=== PATIENT | male | born 1980 | race Two or more races ===

== ENCOUNTER 2021-10-28 08:01 | Outpatient (REF) | payer MEDICAID, SELFPAY ==
[2021-10-28 08:24] LABS: MANUAL DIFF FLAG NO
[2021-10-28 09:13] LABS: Basophils Absolute Auto 0.1 X10*3/uL (0.0-0.2); Basophils Percent Auto 1.7 % (0-2); Eosinophils Absolute Auto 0.5 X10*3/uL (0.0-0.4); Eosinophils Percent Auto 6.1 % (0-4); Hematocrit 46.8 % (42.0-52.0); Hemoglobin 15.7 g/dl (14.0-18.0); Imm Gran Abs Auto 0.02 X10*3/uL (0.00-0.03); Imm Gran Pct Auto 0.3 % (0.0-0.4); Lymphocytes Absolute Auto 1.8 X10*3/uL (1.2-4.9); Mean Corpuscular HGB Conc 33.5 g/dl (31.0-36.0); Mean Corpuscular Hemoglobin 29.1 pg (27.0-33.0); Mean Corpuscular Volume 86.8 fL (80.0-98.0); Mean Platelet Volume 9.4 fL (9.4-12.4); Monocytes Absolute Auto 0.9 X10*3/uL (0.1-1.2); Neutrophils Absolute Auto 4.3 x10*3/uL (2.0-8.3); Neutrophils Percent Auto 55.9 % (45-73); Platelet Count 341 X10*3/uL (160-400); Red Blood Count 5.39 X10*6/uL (4.60-5.80); Red Cell Distribution Width 13.1 % (11.0-16.0); White Blood Count 7.7 X10*3/uL (4.8-10.8)
[2021-10-28 09:40] LABS: Alanine Aminotransferase 25 U/L (0-40); Albumin Level 4.4 g/dL (3.5-5.0); Alkaline Phosphatase 48 U/L (39-117); Anion Gap 11 (12-20); Aspartate Amino Transferase 20 U/L (5-37); Bilirubin Total 0.5 mg/dL (0.0-1.0); Blood Urea Nitrogen 18 mg/dL (9-16); Calcium 9.9 mg/dL (8.4-10.2); Carbon Dioxide 28 mmol/L (22-29); Chloride 104 mmol/L (96-108); Cholesterol 203 mg/dL; Estimated Glomerular Filt Rate > 60; Glucose Fasting 98 mg/dL (60-99); HDL Cholesterol 47 mg/dL; LDL Cholesterol Calculated 137 mg/dl; Potassium 4.4 mmol/L (3.3-5.1); Sodium 139 mmol/L (135-145); Total Protein 7.9 g/dL (6.5-8.0); Triglycerides 95 mg/dL
[2021-10-28 10:06] LABS: Thyroid Stimulating Hormone 0.79 uIU/mL (0.32-4.0)
== END 2021-10-28 08:02 | disposition home or self-care (01) ==
LOC: HO.LAB 08:01
PROVIDERS: PCP Internal Medicine; Visit Provider Internal Medicine
DX: E78.5 Hyperlipidemia, unspecified (principal); E66.9 Obesity, unspecified; D64.9 Anemia, unspecified
CPT/HCPCS: 36415; 80053; 80061; 84443; 85025

== ENCOUNTER 2022-09-01 08:53 | Outpatient (REF) | payer OTHER, SELFPAY ==
[2022-09-01 09:03] LABS: MANUAL DIFF FLAG NO
[2022-09-01 09:20] LABS: Basophils Absolute Auto 0.2 X10*3/uL (0.0-0.2); Basophils Percent Auto 2.1 % (0-2); Eosinophils Absolute Auto 0.4 X10*3/uL (0.0-0.4); Eosinophils Percent Auto 4.7 % (0-4); Hematocrit 49.1 % (42.0-52.0); Hemoglobin 16.5 g/dl (14.0-18.0); Imm Gran Abs Auto 0.03 X10*3/uL (0.00-0.03); Imm Gran Pct Auto 0.4 % (0.0-0.4); Lymphocytes Absolute Auto 2.1 X10*3/uL (1.2-4.9); Lymphocytes Percent Auto 26.3 % (20-40); Mean Corpuscular HGB Conc 33.6 g/dl (31.0-36.0); Mean Corpuscular Hemoglobin 29.3 pg (27.0-33.0); Mean Corpuscular Volume 87.1 fL (80.0-98.0); Mean Platelet Volume 9.3 fL (9.4-12.4); Monocytes Absolute Auto 0.9 X10*3/uL (0.1-1.2); Monocytes Percent Auto 11.6 % (2-11); Neutrophils Absolute Auto 4.3 x10*3/uL (2.0-8.3); Neutrophils Percent Auto 54.9 % (45-73); Platelet Count 364 X10*3/uL (160-400); Red Blood Count 5.64 X10*6/uL (4.60-5.80); Red Cell Distribution Width 12.8 % (11.0-16.0); White Blood Count 7.8 X10*3/uL (4.8-10.8)
[2022-09-01 09:56] LABS: Alanine Aminotransferase 28 U/L (0-40); Albumin Level 4.4 g/dL (3.5-5.0); Alkaline Phosphatase 55 U/L (39-117); Anion Gap 12 (12-20); Aspartate Amino Transferase 21 U/L (5-37); Bilirubin Total 0.7 mg/dL (0.0-1.0); Blood Urea Nitrogen 16 mg/dL (9-16); Calcium 9.6 mg/dL (8.4-10.2); Carbon Dioxide 26 mmol/L (22-29); Chloride 104 mmol/L (96-108); Cholesterol 203 mg/dL; Estimated Glomerular Filt Rate > 60; Glucose Fasting 98 mg/dL (60-99); HDL Cholesterol 44 mg/dL; LDL Cholesterol Calculated 141 mg/dl; Potassium 4.3 mmol/L (3.3-5.1); Sodium 138 mmol/L (135-145); Total Protein 7.9 g/dL (6.5-8.0); Triglycerides 92 mg/dL
[2022-09-01 10:30] LABS: TSH reflex Free T4 0.48 uIU/mL (0.32-4.0); Vitamin B12 671 pg/mL (200-900); Vitamin D 25-OH Total 8.6 ng/mL (>30)
== END 2022-09-01 08:54 | disposition home or self-care (01) ==
LOC: HO.LAB 08:53
PROVIDERS: PCP Internal Medicine; Visit Provider Nurse Practitioner Family
DX: K21.9 Gastro-esophageal reflux disease without esophagitis (principal); Z13.220 Encounter for screening for lipoid disorders
CPT/HCPCS: 36415; 80053; 80061; 82306; 82607; 82746; 84443; 85025

== ENCOUNTER 2024-11-24 15:53 | Outpatient (AMB) | payer OTHER, SELFPAY ==
[2024-11-24 16:01] VITALS: BP 148/98; BMI 35.0
--- NOTE | 2024-11-24 16:01 | MHC.PC.OV ---
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 Accompanied by: Self / Same As Patient Allergies No Known Allergies Allergy (Verified 11/24/24 16:13) Medication List - Last Reconciled 11/24/24 by Francesca Olivares MD cholecalciferol (vitamin D3) 50 mcg PO DAILY omeprazole 20 mg PO DAILY 90 days Tobacco use date assessed: 11/24/24 Dental Screening Dental Screen Date: 11/24/24 Did you have a dental visit in the last 12 months?: No Did you have a dental problem in the last 6 months where you did not have access to dental care?: No Was dental information given to patient?: Patient has dentist HPI HPI Comments History of Present Illness Details The patient is a 44-year-old male presenting for a routine physical exam and to discuss current health issues, including tetanus vaccination status, spinal pain, GERD, and mental health concerns. He mentions a history of back pain for several days, which worsens with movement. For GERD, he is on omeprazole, managing previous stomach discomfort effectively. He expresses occasional depressive episodes and anxiety, without suicidal thoughts or a history of psychiatric treatment. His vaccinations are missing updates, specifically the tetanus, as his last dose was administered ten years ago in 2013. During the visit, there was a plan to discuss initiating colonoscopy screening given his age. Additionally, his family history is non-contributory. He denies tobacco use and reports that he drinks alcohol sporadically. There are no previous surgeries, though he experiences periodic allergy symptoms for which he has taken Zyrtec before but couldn't recall for what purpose. - Tetanus vaccine is due; last administration was in 2013. - Screening colonoscopy recommended due to age-appropriate guidelines. - No recent vaccinations or infectious disease screenings performed (COVID-19 or influenza not tested recently). - Discussed general health maintenance, including follow-up for blood pressure monitoring. [facility] Medical History Depression Allergic rhinitis Obese GERD (gastroesophageal reflux disease) Surgical History No pertinent past surgical history Family History Father No problems noted. Mother No problems noted. Social History Housing: Apartment Alcohol intake: current Alcohol intake frequency: a few times a month Alcohol type: beer Patient Tobacco Use Status: Never used Tobacco e-Cigarette/Vaping Use: Never Used Second Hand Smoke Exposure: No service: No Current occupational status: unemployed Cognitive needs: No Hearing needs: No Vision needs: No Questionnaire PHQ-9 Over the last 2 weeks, how often have you been bothered by any of the following problems? 1. Little interest or pleasure in doing things: several days 2. Feeling down, depressed, or hopeless: nearly every day 3. Trouble falling or staying asleep, or sleeping too much: nearly every day 4. Feeling tired or having little energy: nearly every day 5. Poor appetite or overeating: not at all 6. Feeling bad about yourself - or that you are a failure or have let yourself or your family down: several days 7. Trouble concentrating on things, such as reading the newspaper or watching television: not at all 8. Moving or speaking so slowly that other people could have noticed. Or the opposite - being so fidgety or restless that you have been moving around a lot more than usual: nearly every day 9. Thoughts that you would be better off or of hurting yourself in some way: not at all Total score: 14 Depression Screening Interpretation: Positive (no suicidal thoughts) Depression Screening Follow-up: Existing condition and Follow-up Visit Requested Depression Screening Done: Yes 63662 - PHQ-9 Billing: Yes Source: Developed by Drs. Jaskaran Chappell, Kaitlynn Escobar, Zac Martines and colleagues, with an educational tavon from [employer]. Thrive Questionnaire Date Thrive assessed: 11/24/24 I am a: Patient What is your living situation today?: I have a steady place to live Within the past 12 months, did the food you bought not last and you didn't have the money to get more?: Often true Within the past 12 months, did you worry whether your food would run out before you got money to buy more?: Often true Do you have trouble paying for medicines?: Yes Do you have trouble getting transportation to medical appointments?: No Do you have trouble paying your heating and electricity bill?: No Do you have trouble taking care of your child, family member or friend?: No Do you have trouble with day-to-day activities such as bathing, preparing meals, shopping, managing finances, etc.?: No Are you currently unemployed and looking for a job?: Yes Are you interested in more education?: Yes Please select the resources that you would like help with: None Currently or been in a relationship where the following occur: No concerns reported THRIVE Score: 2 AUDIT C Alcohol Use Questionnaire (AUDIT-C) 1. How often do you have a drink containing alcohol?: Monthly or less 2. How many drinks containing alcohol do you have on a typical day when you are drinking?: 1 or 2 3. How often do you have six or more drinks on one occasion?: Never Total Score: 1 Score Reviewed/Action Taken: No KELSEA-7 AMB Questionnaire KELSEA-7 Date KELSEA - 7 assessed: 11/24/24 Feeling nervous, anxious, or on edge: 2 = More than half the days Not being able to stop or control worryin = Not at all Worrying too much about different things: 3 = Nearly every day Trouble relaxin = Several days Being so restless that it is hard to sit still: 0 = Not at all Becoming easily annoyed or irritable: 1 = Several days Feeling afraid as if something awful might happen: 3 = Nearly every day Total KELSEA-7 score (0-4 normal; 5-9 mild; 10-14 moderate; 15-21 severe): 10 Source: Developed by Drs. Jaskaran Chappell, Kaitlynn Escobar, Zac Martines and colleagues, with an educational tavon from [employer]. KELSEA-7 Assessment Billing KELSEA-7 Assessment Tool: KELSEA-7 Assessment 05375 Review of Systems Const All systems reviewed & are unremarkable except as noted in HPI and below Card Denies chest pain at rest, Denies chest pain with activity, Denies edema, Denies irregular heart rhythm, Denies claudication, Denies dyspnea, Denies dyspnea on exertion, Denies orthopnea, Denies paroxysmal nocturnal dyspnea and Denies slow heart rate Resp Denies cough, Denies dyspnea and Denies dyspnea on exertion GI Denies abdominal pain, Denies change in bowel habits, Denies excessive flatus, Denies nausea and Denies vomiting Denies urinary hesitancy, Denies urinary incontinence and Denies urinary urgency Musc Reports back pain, Denies atrophy, Denies deformity, Denies limited range of motion and Reports radiating pain into limb Physical exam (Primary Care) Vital Signs: Last Vital Signs BP 148/98 H 11/24/24 16:01 BMI result Body Mass Index 35.0 Tobacco/Smoking Status: Tobacco use Status Tobacco use date assessed 11/24/24 11/24/24 16:09 Patient Tobacco Use Status Never used Tobacco 11/24/24 16:09 e-Cigarette/Vaping Use Never Used 11/24/24 16:09 PHQ-9: PHQ-9 Score PHQ-9: Total score 14 11/24/24 16:34 Depression Screening Interpretation: Positive (no suicidal thoughts) Depression Screening Follow-up: Existing condition and Follow-up Visit Requested Thrive Assessment: Date of Thrive Assessment Date Thrive assessed 11/24/24 11/24/24 16:09 Currently or been in a relationship where the following occur: No concerns reported HENMT Head: Yes normal to inspection, Yes normocephalic and Yes atraumatic Ears: external ears normal Eyes General: appearance normal, both eyes and all related structures Eyelids: Yes eyelids normal Conjunctivae: conjunctivae normal Neck Neck: Yes normal visual inspection and Yes supple Resp Effort & Inspection: normal respiratory effort Auscultation: clear to auscultation bilaterally Cardio Jugular venous distension: no JVD Rate: regular rate Rhythm: regular rhythm Heart sounds: S1 normal heart sound present and S2 normal heart sound present GI Inspection: Yes normal to inspection Palpation (GI): Soft to palpation and nontender Auscultation: normal bowel sounds Skin General skin exam: no rashes or lesions noted Neuro General: no focal motor deficits Extrem General: Yes full ROM Psych Appearance: grossly normal Immunizations Boostrix Tdap 2.5 Lf unit-8 mcg-5 Lf/0.5 mL intramuscular syringe Performing Provider: Francesca Olivares MD [place] [facility] [place] [facility] Administered by: SHAINA Lu on 11/24/24 16:35 Dose Route Admin Location Dispensed Lot Number Expiration Date [employer] 0.5 mL IM Left Deltoid 0.5 mL [id number] 03/04/27 81948-833-90 [employer] VIS Given Date VIS Provided VIS Publication Date 11/24/24 Single Vaccine 24 Eligibility Eligibility Date Funding Source Not [facility] Eligible 11/24/24 Private Coding Level of Care Code Est Pt Level 3 (53003) Est Pt Prev Care 40-64y(84388) Diagnoses Adult general medical exam Z00.00 Right sided sciatica M54.31 Allergic rhinitis J30.9 GERD (gastroesophageal reflux disease) K21.9 Mild recurrent major depression F33.0 Additional Codes KELSEA-7 Assessment Billing - KELSEA-7 Assessment Tool: KELSEA-7 Assessment 02204 ([id number]) PHQ-9 - 02964 - PHQ-9 Billing: Yes ([id number]) Time Spent (min) 32 Assessment & Plan Assessment & Plan (1) Adult general medical exam: Code(s): Z00.00 - Encounter for general adult medical examination without abnormal findings Category: Medical (2) Right sided sciatica: Code(s): M54.31 - Sciatica, right side Category: Medical (3) Allergic rhinitis: Code(s): J30.9 - Allergic rhinitis, unspecified Category: Medical (4) GERD (gastroesophageal reflux disease): Code(s): K21.9 - Gastro-esophageal reflux disease without esophagitis Category: Medical (5) Mild recurrent major depression: Code(s): F33.0 - Major depressive disorder, recurrent, mild Category: Medical Plan The plan includes addressing multiple concerns highlighted during the visit. Initiate antibiotic therapy with Premison, along with imaging of the spine to assess underlying spinal issues. Continue omeprazole for GERD management. Address mental health issues by monitoring symptoms closely and assessing the effectiveness of past prescriptions. Administer tetanus vaccine today due to it being overdue. For preventive care, schedule a colonoscopy screening and intermittent blood pressure monitoring to manage detected elevation. Follow-up to assess response to current management and new screenings. Patient was informed and verbally consented to the use of an ambient scribe for clinic note documentation during this visit. I discussed with the patient the need for an updated tetanus vaccination, which was agreed upon today. Addressed the importance of imaging for spine pain to ensure an accurate diagnosis. We discussed the reliance on omeprazole for GERD and verified current prescriptions were adequate. Emphasized the necessity of screening colonoscopy due to reaching the recommended age. We agreed on the plan to begin monitoring blood pressure at intervals and direct the follow-up of depression and anxiety symptoms without exploring in-depth psychiatric referrals presently. The patient consented to all recommended procedures and medications as outlined. Orders: Orders Vitamin D 25-OH Total Today E55.9 - Vitamin D deficiency, unspecified XR lumbar spine 2-3V Today M54.31 - Sciatica, right side Lipid Panel Today E78.5 - Hyperlipidemia, unspecified, Z00.00 - Encounter for general adult medical examination without abnormal findings Comprehensive [place]. Panel Fast Today Z00.00 - Encounter for general adult medical examination without abnormal findings TDaP Immunization Today Z23 - Encounter for immunization Referrals Open Access Screening Colonoscopy Referral Z12.12 - Encounter for screening for malignant neoplasm of rectum Medications: New famotidine 40 mg PO BID 180 tabs 1RF 90 days J30.2 - Other seasonal allergic rhinitis levocetirizine 5 mg PO DAILY PRN 90 tabs 1RF allergy symptoms 90 days J30.2 - Other seasonal allergic rhinitis Patient Instructions: - Stay for tetanus vaccination today. - Follow through with prescribed antibiotics for five days. - Monitor blood pressure at home periodically. - Schedule the colonoscopy for colon cancer screening. - Use omeprazole as directed for GERD symptoms. - Follow up after completing spine imaging. - Reach out if any significant change in feelings of anxiety or depression. - Report any worsening or persistent back pain.
== END 2024-11-24 16:38 | disposition home or self-care (01) ==
LOC: HO.HMCH 15:54
PROVIDERS: PCP Internal Medicine; Visit Provider Internal Medicine
DX: Z00.00 Encounter for general adult medical examination without abnormal findings (principal); M54.31 Sciatica, right side; J30.9 Allergic rhinitis, unspecified; K21.9 Gastro-esophageal reflux disease without esophagitis; F33.0 Major depressive disorder, recurrent, mild; Z23 Encounter for immunization

== ENCOUNTER → 2024-11-24 15:53 | Outpatient (BNVA) | payer OTHER, SELFPAY | PROVIDERS: PCP Internal Medicine; Visit Provider Internal Medicine | DX: Z00.00 Encounter for general adult medical examination without abnormal findings (principal); Z23 Encounter for immunization; M54.31 Sciatica, right side; J30.9 Allergic rhinitis, unspecified; K21.9 Gastro-esophageal reflux disease without esophagitis; F33.0 Major depressive disorder, recurrent, mild; Z79.899 Other long term (current) drug therapy | CPT/HCPCS: 90471; 90715; 96127; 99212; 99396 ==

== ENCOUNTER 2024-11-26 09:02 | Outpatient (REF) | payer OTHER, SELFPAY ==
--- NOTE | ~2024-11-26 | XR_ITS ---
EXAMINATION: XR LUMBOSACRAL SPINE CLINICAL INFORMATION: M54.31 - Sciatica, right side COMPARISON: October 01, 2009 is not available on PACS. TECHNIQUE: Three views of the lumbosacral spine. FINDINGS: Endplate sclerosis marginal osteophyte formation and decreased intervertebral disc height throughout the lower thoracic and upper lumbar spine. No acute cortical disruption. No gross malalignment. Calcifications in the anterior intervertebral disc T10-11, T11-12 and L1-2. Mild S-shaped curvature of the thoracolumbar spine. XR/XR lumbar spine 2-3V IMPRESSION: Multilevel thoracolumbar spondylosis without acute fracture or gross listhesis. Electronically signed by: Julius Whalen MD 11/26/2024 09:55 AM EDT
[2024-11-26 12:21] LABS: Alanine Aminotransferase 36 U/L (0-40); Albumin Level 4.5 g/dL (3.5-5.0); Alkaline Phosphatase 53 U/L (39-117); Anion Gap 12 (12-20); Aspartate Amino Transferase 27 U/L (5-37); Bilirubin Total 0.6 mg/dL (0.0-1.0); Blood Urea Nitrogen 15 mg/dL (9-16); Calcium 9.4 mg/dL (8.4-10.2); Carbon Dioxide 25 mmol/L (22-29); Chloride 106 mmol/L (96-108); Cholesterol 201 mg/dL (<200); Estimated Glomerular Filt Rate > 60; Glucose Fasting 94 mg/dL (60-99); HDL Cholesterol 46 mg/dL (>40); LDL Cholesterol Calculated 131 mg/dL (<100); Sodium 139 mmol/L (135-145); Total Protein 8.4 g/dL (6.5-8.0); Triglycerides 120 mg/dL (<150); Vitamin D 25-OH Total 19.1 ng/mL (>30)
== END 2024-11-26 09:03 | disposition home or self-care (01) ==
LOC: HO.LAB 09:02
PROVIDERS: PCP Internal Medicine; Visit Provider Internal Medicine
DX: Z00.00 Encounter for general adult medical examination without abnormal findings (principal); E78.5 Hyperlipidemia, unspecified; E55.9 Vitamin D deficiency, unspecified; M54.31 Sciatica, right side
CPT/HCPCS: 36415; 72100; 80053; 80061; 82306

== ENCOUNTER → 2024-11-26 09:21 | Outpatient (BNV) | payer OTHER, SELFPAY | PROVIDERS: PCP Internal Medicine; Visit Provider Radiology Diagnostic Radiology | DX: M47.895 Other spondylosis, thoracolumbar region (principal) | CPT/HCPCS: 72100 ==

== ENCOUNTER → 2024-12-11 08:21 | Outpatient (BNVA) | payer OTHER, SELFPAY | PROVIDERS: PCP Internal Medicine ==

== ENCOUNTER 2025-04-02 08:02 | Outpatient (AMB) | payer OTHER, SELFPAY ==
[2025-04-02 08:10] VITALS: BP 128/82; PULSE 81; TEMP 36.1; O2SAT 97; BMI 35.0
--- NOTE | 2025-04-02 08:10 | A.OFFPC_ITS ---
Vital Signs 04/02/25 08:10 Height 5 ft 10 in Weight 244 lb BMI 35.0 BP 128/82 Blood Pressure Location Lt brachial Position Sitting Pulse 81 Pulse Source Pulse Oximeter Temp 97.0 F Temp Source Temporal Artery Scan Pulse Oximetry (%) 97 Oxygen Delivery Method Room Air Intake Visit Reasons: bp, depression, anxiety Poultry Offal Icer Required: No Accompanied by: Self / Same As Patient Allergies No Known Allergies Allergy (Verified 04/02/25 08:27) Medication List - Last Reconciled 04/02/25 by Francesca Olivares MD cholecalciferol (vitamin D3) 50 mcg PO DAILY famotidine 40 mg PO BID 90 days levocetirizine 5 mg PO DAILY PRN 90 days omeprazole 20 mg PO DAILY 90 days Tobacco use date assessed: 04/02/25 Dental Screening Dental Screen Date: 11/24/24 Did you have a dental visit in the last 12 months?: Yes Did you have a dental problem in the last 6 months where you did not have access to dental care?: No Was dental information given to patient?: Patient has dentist HPI HPI Comments History of Present Illness Details The patient is a 45-year-old male presenting with concerns related to allergies and arthritis management. He reports having arthritis in multiple areas, particularly in the back, which causes significant discomfort exacerbated by certain activities. The patient also experiences allergic reactions to various substances, including perfumes and chocolate, which have been persistent and troublesome. He has been prescribed famotidine and levocetirizine for allergy management, with a plan to add montelukast and a nasal spray for better control. Additionally, the patient has a history of hypertension and hypercholesterolemia, though current management does not require medication for cholesterol. His blood pressure is well-controlled, and cholesterol levels are monitored annually. He also has a history of vitamin D deficiency and gastroesophageal reflux disease, for which he takes omeprazole. [facility] Medical History Depression Allergic rhinitis Obese GERD (gastroesophageal reflux disease) Surgical History No pertinent past surgical history Family History Father No problems noted. Mother No problems noted. Social History Housing: Apartment Alcohol intake: current Alcohol intake frequency: a few times a month Alcohol type: beer Patient Tobacco Use Status: Never used Tobacco e-Cigarette/Vaping Use: Never Used Second Hand Smoke Exposure: No service: No Current occupational status: unemployed Cognitive needs: No Hearing needs: No Vision needs: No Questionnaire PHQ-9 Over the last 2 weeks, how often have you been bothered by any of the following problems? 1. Little interest or pleasure in doing things: several days 2. Feeling down, depressed, or hopeless: nearly every day 3. Trouble falling or staying asleep, or sleeping too much: nearly every day 4. Feeling tired or having little energy: nearly every day 5. Poor appetite or overeating: not at all 6. Feeling bad about yourself - or that you are a failure or have let yourself or your family down: several days 7. Trouble concentrating on things, such as reading the newspaper or watching television: not at all 8. Moving or speaking so slowly that other people could have noticed. Or the opposite - being so fidgety or restless that you have been moving around a lot more than usual: nearly every day 9. Thoughts that you would be better off or of hurting yourself in some way: not at all Total score: 14 Depression Screening Interpretation: Positive (no suicidal thoughts) Depression Screening Follow-up: Existing condition and Follow-up Visit Requested Depression Screening Done: Yes 60693 - PHQ-9 Billing: Yes Source: Developed by Drs. Jaskaran Chappell, Kaitlynn Escobar, Zac Martines and colleagues, with an educational tavon from [employer]. Thrive Questionnaire Date Thrive assessed: 11/24/24 I am a: Patient What is your living situation today?: I have a steady place to live Within the past 12 months, did the food you bought not last and you didn't have the money to get more?: Often true Within the past 12 months, did you worry whether your food would run out before you got money to buy more?: Often true Do you have trouble paying for medicines?: Yes Do you have trouble getting transportation to medical appointments?: No Do you have trouble paying your heating and electricity bill?: No Do you have trouble taking care of your child, family member or friend?: No Do you have trouble with day-to-day activities such as bathing, preparing meals, shopping, managing finances, etc.?: No Are you currently unemployed and looking for a job?: Yes Are you interested in more education?: Yes Currently or been in a relationship where the following occur: I choose not to answer THRIVE Score: 2 AUDIT C Alcohol Use Questionnaire (AUDIT-C) 1. How often do you have a drink containing alcohol?: Monthly or less 2. How many drinks containing alcohol do you have on a typical day when you are drinking?: 3 or 4 3. How often do you have six or more drinks on one occasion?: Never Total Score: 2 Score Reviewed/Action Taken: No KELSEA-7 AMB Questionnaire KELSEA-7 Date KELSEA - 7 assessed: 11/24/24 Feeling nervous, anxious, or on edge: 2 = More than half the days Not being able to stop or control worryin = Several days Worrying too much about different things: 1 = Several days Trouble relaxin = Several days Being so restless that it is hard to sit still: 2 = More than half the days Becoming easily annoyed or irritable: 1 = Several days Feeling afraid as if something awful might happen: 0 = Not at all Total KELSEA-7 score (0-4 normal; 5-9 mild; 10-14 moderate; 15-21 severe): 8 Source: Developed by Drs. Jaskaran Chappell, Kaitlynn Escobar, Zac Martines and colleagues, with an educational tavon from [employer]. Review of Systems Const All systems reviewed & are unremarkable except as noted in HPI and below Card Denies chest pain at rest, Denies chest pain with activity, Denies edema, Denies irregular heart rhythm, Denies claudication, Denies dyspnea, Denies dyspnea on exertion, Denies orthopnea, Denies paroxysmal nocturnal dyspnea and Denies slow heart rate Resp Denies cough, Denies dyspnea and Denies dyspnea on exertion GI Denies abdominal pain, Denies change in bowel habits, Denies excessive flatus, Denies nausea and Denies vomiting Denies urinary hesitancy, Denies urinary incontinence and Denies urinary urgency Physical exam (Primary Care) Vital Signs: Last Vital Signs Temp 97.0 F 04/02/25 08:10 Pulse 81 04/02/25 08:10 BP 128/82 04/02/25 08:10 Pulse Ox 97 04/02/25 08:10 Oxygen Delivery Method Room Air 04/02/25 08:10 BMI result Body Mass Index 35.0 BMI Assessment/Plan discussion: High BMI High, discussed plan: lifestyle, weight reduction, dietary and physical activity Tobacco/Smoking Status: Tobacco use Status Tobacco use date assessed 04/02/25 04/02/25 08:15 Patient Tobacco Use Status Never used Tobacco 04/02/25 08:15 e-Cigarette/Vaping Use Never Used 04/02/25 08:15 PHQ-9: PHQ-9 Score PHQ-9: Total score 14 04/02/25 08:15 Depression Screening Interpretation: Positive (no suicidal thoughts) Depression Screening Follow-up: Existing condition and Follow-up Visit Requested Thrive Assessment: Date of Thrive Assessment Date Thrive assessed 11/24/24 04/02/25 08:15 Currently or been in a relationship where the following occur: I choose not to answer Resp Effort & Inspection: normal respiratory effort Auscultation: clear to auscultation bilaterally Cardio Jugular venous distension: no JVD Rate: regular rate Rhythm: regular rhythm Heart sounds: S1 normal heart sound present and S2 normal heart sound present Extrem General: Yes full ROM Coding Level of Care Code Est Pt Level 4 (50681) Complex EM visit Add On G2211 Diagnoses Low vitamin D level R79.89 Allergic rhinitis J30.9 GERD (gastroesophageal reflux disease) K21.9 Right sided sciatica M54.31 Additional Codes PHQ-9 - 06522 - PHQ-9 Billing: Yes ([id number]) Time Spent (min) 21 Assessment & Plan Assessment & Plan (1) Low vitamin D level: Code(s): R79.89 - Other specified abnormal findings of blood chemistry Category: Medical (2) Allergic rhinitis: Code(s): J30.9 - Allergic rhinitis, unspecified Category: Medical (3) GERD (gastroesophageal reflux disease): Code(s): K21.9 - Gastro-esophageal reflux disease without esophagitis Category: Medical (4) Right sided sciatica: Code(s): M54.31 - Sciatica, right side Category: Medical Plan Plan Patient was informed and verbally consented to the use of an ambient scribe for clinic note documentation during this visit. 1. Allergic Rhinitis The patient is prescribed famotidine and levocetirizine for allergy management, with plans to add montelukast and a nasal spray for improved control. Referral to an legal contracts specialist is recommended for further evaluation and management. 2. Arthritis The patient reports arthritis in multiple areas, particularly the back, causing significant discomfort. Management includes monitoring symptoms and adjusting activities to minimize exacerbation. 3. Vitamin D Deficiency The patient has a history of vitamin D deficiency, which is managed with supplementation as needed. 4. Gastroesophageal Reflux Disease The patient is currently taking omeprazole for gastroesophageal reflux disease management. Orders: Orders Lipid Panel 8 Months E78.5 - Hyperlipidemia, unspecified Vitamin D 25-OH Total 8 Months E55.9 - Vitamin D deficiency, unspecified Comprehensive [place]. Panel Fast 8 Months K21.9 - Gastro-esophageal reflux disease without esophagitis Referrals Allergy & Immunology Referral J30.9 - Allergic rhinitis, unspecified Medications: New montelukast 10 mg PO BEDTIME 90 tabs 1RF 90 days prednisone Take 4 tabs for 2 days, then 3 tabs for 2 days, then 2 tabs for 2 days, then 1 tab for 2 days 10 mg PO DIRECTED 20 tabs 0RF 8 days fluticasone propionate 50 mcg/actuation (Children's Flonase Allergy Relief) administer into each nostril 1 spray intranasal BID 16 grams 6RF 30 days Changed From cholecalciferol (vitamin D3) 50 mcg PO DAILY 90 tabs 0RF R79.89 - Other specified abnormal findings of blood chemistry To cholecalciferol (vitamin D3) 50 mcg PO DAILY 90 tabs 3RF 90 days R79.89 - Other specified abnormal findings of blood chemistry From levocetirizine 5 mg PO DAILY 90 days PRN 90 tabs 1RF allergy symptoms J30.2 - Other seasonal allergic rhinitis To levocetirizine 5 mg PO BID PRN 180 tabs 3RF allergy symptoms 90 days J30.2 - Other seasonal allergic rhinitis Refilled famotidine 40 mg PO BID 180 tabs 3RF 90 days J30.2 - Other seasonal allergic rhinitis omeprazole 20 mg PO DAILY 90 caps 3RF 90 days E66.9 - Obesity, unspecified
== END 2025-04-02 08:42 | disposition home or self-care (01) ==
LOC: HO.HMCH 08:02
PROVIDERS: PCP Internal Medicine; Visit Provider Internal Medicine
DX: R79.89 Other specified abnormal findings of blood chemistry (principal); J30.9 Allergic rhinitis, unspecified; K21.9 Gastro-esophageal reflux disease without esophagitis; M54.31 Sciatica, right side

== ENCOUNTER → 2025-04-02 08:02 | Outpatient (BNVA) | payer OTHER, SELFPAY | PROVIDERS: PCP Internal Medicine; Visit Provider Internal Medicine | DX: E55.9 Vitamin D deficiency, unspecified (principal); J30.9 Allergic rhinitis, unspecified; K21.9 Gastro-esophageal reflux disease without esophagitis; M54.31 Sciatica, right side; M19.90 Unspecified osteoarthritis, unspecified site; Z13.31 Encounter for screening for depression | CPT/HCPCS: 96127; 99212 ==